=== PATIENT | female | born 1945 | race Caucasian/White ===

== ENCOUNTER 2018-10-04 16:42 | Inpatient (IN) | payer OTHER ==
[~2018-10-04] VITALS: Ht 149.9 cm; Wt 58.5 kg
[~2018-10-04 16:42] MED LIST: BENICAR HCT 201 EACH; CYMBALTA60 MG PO; HYDROCODON-ACE1 EAC7 PO; IBUPROFEN 200200 M1; PREDNISONE 2.52.5 M1; PREMPRO 0.625-1 EACH; PROTONIX40 M2; ZOLOFT 50 MG TA50 M1
[2018-10-04 16:57] VITALS: BP 184/88
[2018-10-04] MEDS ORDERED: BUSPIRONE HCL10 MG PO (17:16)
[2018-10-04] MEDS ORDERED: TRAZODONE HCL50 MG PO (17:16)
[2018-10-04] MEDS ORDERED: VITAMIN D1000 UNI1 PO (17:16)
[2018-10-04] MEDS ORDERED: COZAAR 25 MG TA25 M1 PO (17:17)
[2018-10-04] MEDS ORDERED: SINGULAIR 10 MG10 M1 PO (17:19)
[2018-10-04] MEDS ORDERED: PREDNISONE 5 MG5 M1 PO (17:19)
[2018-10-04] MEDS ORDERED: PROTONIX40 M2 PO (17:19)
[2018-10-04] MEDS ORDERED: REMERON15 MG PO (17:20)
[2018-10-04] MEDS ORDERED: ZOLOFT50 MG PO (17:20)
[2018-10-04 17:21] LABS: URINE BILIRUBIN NEGATIVE (Negative); URINE BLOOD TRACE (Negative); URINE CLARITY CLEAR; URINE COLOR YELLOW; URINE GLUCOSE-RANDOM NEGATIVE (Negative); URINE KETONES TRACE (Negative); URINE LEUKOCYTES-REFLEX TRACE (Negative); URINE NITRITE-REFLEX NEGATIVE (Negative); URINE PROTEIN NEGATIVE (Negative); URINE SPECIFIC GRAVITY 1.015 (1.005-1.030); URINE UROBILINOGEN 0.2 E.U./dl (0.2-1.0)
[2018-10-04 17:41] LABS: ABSOLUTE BASOPHILS 0.1 thou/uL (0.0-0.2); ABSOLUTE EOSINOPHILS 0.4 thou/uL (0.0-0.7); ABSOLUTE LYMPHOCYTES 1.8 thou/uL (0.8-5.3); ABSOLUTE MONOCYTES 0.8 thou/uL (0.0-1.2); ABSOLUTE NEUTROPHILS 4.9 thou/uL (1.6-8.1); BASOPHILS 0.8 %; EOSINOPHILS 5.6 %; HEMATOCRIT 38.2 % (37.0-47.0); HEMOGLOBIN 12.6 gm/dL (12.0-15.0); LYMPHOCYTES 22.3 %; MCH 29.8 pg (26.0-34.0); MCHC 32.8 g/dL (28.0-37.0); MCV 90.7 fL (80.0-100.0); MONOCYTES 9.7 %; MPV 7.3 fl. (7.2-11.1); NUCLEATED RBCS 0 /100WBC; PLATELET COUNT* 392 thou/uL (150-400); POLYS 61.6 %; RBC 4.21 mil/uL (4.20-5.00); RDW-CV 14.1 % (10.5-14.5)
[2018-10-04 17:51] LABS: ANION GAP 10 mmol/L (7-16); BUN 14 mg/dL (7-18); CALCIUM 10.2 mg/dL (8.5-10.1); CHLORIDE 101 mmol/L (98-107); CO2 28 mmol/L (21-32); CREATININE 0.8 mg/dL (0.6-1.3); GLUCOSE 129 mg/dL (70-99); SODIUM 139 mmol/L (136-145)
[2018-10-04 17:58] LABS: CRYSTALS None Seen /LPF (None Seen); HYALINE CASTS >10 Many /LPF (None Seen); MUCUS None Seen strn/LPF (None Seen); SQUAMOUS >10 Many /LPF (0-3); URINE RBC 0-2 Rare /HPF (0-2); URINE WBC-REFLEX 0-5 Rare /HPF (0-5)
[2018-10-04 17:58] LABS: ALBUMIN 3.3 g/dL (3.4-5.0); ALKALINE PHOSPHATASE 123 U/L (46-116); SGOT 14 U/L (15-37); SGPT 11 U/L (30-65); TOTAL BILIRUBIN 0.3 mg/dL (<0.1-1.0); TOTAL PROTEIN 8.4 g/dL (6.4-8.2); TROPONIN-I LEVEL <0.06 ng/mL (<0.06)
[2018-10-04 17:59] LABS: BACTERIA-REFLEX 1-9 Few /HPF (None Seen)
[2018-10-04 18:57] LABS: INFLUENZA A ANTIGEN None Detected (None Detect); INFLUENZA B ANTIGEN None Detected (None Detect)
[2018-10-04 19:56] VITALS: BP 176/84
[2018-10-04 20:00] VITALS: BP 200/96
[2018-10-05] VITALS: BP 151/71
[2018-10-05 04:00] VITALS: BP 152/47
--- NOTE | 2018-10-05 04:14 | NUR ---
PT ARRIVED FROM ER AROUND 2029. ASSESSMENT COMPLETED CHARTED. HAS RESIDUAL FACIAL DROOP FROM 3 EPISODES OF [facility] [place]. DAUGHTER AND SON WITH PT AT ADMISSION THEN LEFT AFTER. C/O NECK PAIN WHICH RESISIDED SHORTLY AFTER. STARTED O2 WITH OXYGEN LEVEL AROUND 87% AND BP WAS HIGHER AT START OF SHIFT BUT WENT DOWN LATER IN THE SHIFT. PT RESTING IN BED AT THIS TIME. WILL CONTINUE TO MONITOR.
[2018-10-05 05:56] LABS: HEMATOCRIT 35.7 % (37.0-47.0); HEMOGLOBIN 11.5 gm/dL (12.0-15.0); MCH 29.5 pg (26.0-34.0); MCHC 32.2 g/dL (28.0-37.0); MCV 91.7 fL (80.0-100.0); MPV 7.8 fl. (7.2-11.1); RBC 3.9 mil/uL (4.20-5.00); WBC 6.5 thou/uL (4.0-11.0)
[2018-10-05 06:19] LABS: CALCIUM 9.1 mg/dL (8.5-10.1); CREATININE 0.6 mg/dL (0.6-1.3); MAGNESIUM 1.9 mg/dL (1.8-2.4)
[2018-10-05 06:28] LABS: POTASSIUM 4.3 mmol/L (3.5-5.1)
[2018-10-05 08:00] VITALS: BP 171/86
--- NOTE | 2018-10-05 12:35 | EKG ---
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 : 1945 Requested By: Anne Covarrubias Order Number: [id number] MD: Hao Solano Measurements Intervals [place] Rate: 82 P: 71 PA: 163 QRS: -26 QRSD: 135 T: 65 QT: 434 QTc: 507 Interpretive Statements Sinus rhythm Left bundle branch block Compared to ECG 12/12/2010 06:22:50 Left bundle-branch block now present Electronically Signed On 10-05-2018 12:35:21 SECURITY MESSENGER by Hao Solano [email or web address] <ELECTRONICALLY SIGNED> By: Hao Solano MD, [facility] 10/05/18 1235 1755 1755 Hao Solano MD, [facility] /EPI
--- NOTE | 2018-10-05 12:54 | NUR ---
ASSESSMENT COMPLETED REFER TO COMPUTER CHARTING. PATIENT M/S STATUS. BED IN LOW AND LOCKED POSITION. CALL LIGHT WITHIN REACH. PATIENT WORKING WITH THEARPY THIS AM. IV FLUIDS INFUSING. PATIENT ON 2 LITERS O2 VIA NASAL CANNULA. PATIENT UP WITH ASSISTANCE IN ROOM. WILL CONTINUE TO MONITOR THIS SHIFT.
--- NOTE | 2018-10-05 13:27 | NUR ---
Pt is A&O. Resides at home alone. Supportive family that assists as needed. Pt is independent, still cooks and cleans, family assists as needed and provide transportation. Pt has a walker and cane for mobility. No hx of HH or SNF. Pt's goal is home at dc, open to HH if needed at dc. With Pt's insurance, Pt will need to use [facility] p:[phone], f:[phone]
[2018-10-05 15:36] VITALS: BP 170/81
[2018-10-05 20:00] VITALS: BP 172/77
[2018-10-06] VITALS: BP 124/58
--- NOTE | 2018-10-06 04:01 | NUR ---
ASSUMED PT CARE AT 1930. ASSESSMENT COMPLETED CHARTED. PT UP WITH STANDBY ASSIST, MED SURG STATUS, ABLE TO MAKE NEEDS KNOWN. NO C/O PAIN OR DISCOMFORT. 2L O2 STILL ON. WILL CONTINUE TO MONITOR.
[2018-10-06 04:30] LABS: HEMATOCRIT 29.4 % (37.0-47.0); MCH 29.7 pg (26.0-34.0); MCHC 32.2 g/dL (28.0-37.0); MCV 92.1 fL (80.0-100.0); MPV 7.9 fl. (7.2-11.1); RBC 3.19 mil/uL (4.20-5.00); RDW-CV 14.3 % (10.5-14.5); WBC 12.6 thou/uL (4.0-11.0)
[2018-10-06 04:42] LABS: HEMOGLOBIN 9.5 gm/dL (12.0-15.0)
[2018-10-06 05:09] LABS: ALBUMIN 2.4 g/dL (3.4-5.0); CALCIUM 8.6 mg/dL (8.5-10.1); CREATININE 0.6 mg/dL (0.6-1.3); MAGNESIUM 1.8 mg/dL (1.8-2.4); TOTAL BILIRUBIN 0.2 mg/dL (<0.1-1.0); TOTAL PROTEIN 5.7 g/dL (6.4-8.2)
[2018-10-06 07:18] VITALS: BP 134/70
--- NOTE | 2018-10-06 14:38 | NUR ---
ASSESSMENT COMPLETED REFER TO COMPUTER CHARTING. PATIENT MED SURG STATUS. BED IN LOW AND LOCKED POSITION. CALL LIGHT WITHIN REACH. FAMILY AT BEDSIDE AT THIS TIME. PATIENT REPORTING NO PAIN, NAUSEA OR SHORTNESS OF BREATH. IV SALINE LOCKED. PATIENT ON 1 LITER O2 VIA NASAL CANNULA. PATIENT UP WITH ASSISTANCE. WILL CONTINUE TO MONITOR THIS SHIFT
--- NOTE | 2018-10-06 16:30 | NUR ---
PT ARRIVED TO UNIT. UP TO CHAIR WITH ASSIST. ORIENTED TO ROOM,CALL LIGHT WITHIN REACH
[2018-10-06 20:00] VITALS: BP 177/69
[2018-10-07 00:15] VITALS: BP 148/64
[2018-10-07 03:59] LABS: ABSOLUTE BASOPHILS 0.1 thou/uL (0.0-0.2); ABSOLUTE LYMPHOCYTES 2.6 thou/uL (0.8-5.3); ABSOLUTE MONOCYTES 0.5 thou/uL (0.0-1.2); ABSOLUTE NEUTROPHILS 7.5 thou/uL (1.6-8.1); BASOPHILS 0.6 %; HEMATOCRIT 30.9 % (37.0-47.0); HEMOGLOBIN 10.1 gm/dL (12.0-15.0); LYMPHOCYTES 24.3 %; MCH 29.9 pg (26.0-34.0); MCHC 32.8 g/dL (28.0-37.0); MCV 91.3 fL (80.0-100.0); MONOCYTES 5.1 %; MPV 7.9 fl. (7.2-11.1); NUCLEATED RBCS 0 /100WBC; PLATELET COUNT* 346 thou/uL (150-400); RBC 3.38 mil/uL (4.20-5.00); RDW-CV 14.6 % (10.5-14.5); WBC 10.8 thou/uL (4.0-11.0)
[2018-10-07 04:23] LABS: CALCIUM 8.9 mg/dL (8.5-10.1); CREATININE 0.7 mg/dL (0.6-1.3); POTASSIUM 3.3 mmol/L (3.5-5.1)
--- NOTE | 2018-10-07 04:50 | NUR ---
ALERT AND ORIENTED X4. UP TO BATHROOM WITH STAND BY ASSIST. BED ALARM ON. CONTINUES ON IV ANTIBIODIC AND BREATHING TREATHMENTS. NO C/O PAIN OR NAUSEA. O2 SAT ON ROOM AIR 91%. CALL LIGHT WITHIN REACH. WILL CONTINUE TO MONITOR.
[2018-10-07 07:40] VITALS: BP 168/85
[2018-10-07 16:30] VITALS: BP 179/70
--- NOTE | 2018-10-07 17:38 | NUR ---
PT HAS BEEN A&Ox4 FOR CURRENT SHIFT. POTASSIUM GIVEN PER PROTOCOL. NEW LABS GETTING DRAWN @1800. IRON INFUSING. HAS HAD FAMILY MEMBERS VISITING THROUGHOUT THE DAY. HAS NOT COMPLAINED OF PAIN. VITALS STABLE. HAS BEEN PLEASANT. CALL LIGHT IN REACH. FALL PRECAUTIONS IN PLACE. WILL CONTINUE TO MONITOR.
--- NOTE | 2018-10-07 17:53 | NUR ---
NURSING DOCUMENTATION BY RENE SLATER REVIEWED
[2018-10-07 21:45] VITALS: BP 156/56
[2018-10-08 03:35] LABS: CALCIUM 8.8 mg/dL (8.5-10.1); CREATININE 0.7 mg/dL (0.6-1.3); MAGNESIUM 2.1 mg/dL (1.8-2.4); POTASSIUM 4.1 mmol/L (3.5-5.1)
--- NOTE | 2018-10-08 04:28 | NUR ---
ALERT AND ORIENTED X4. LUNG SOUNDS DIMINISHED. O2 SAT 82% ON ROOM AIR. PLACED BACK ON O2 AT 2L/NC AND O2 SAT 95%. NO C/O PAIN OR NAUSEA. CALL LIGHT WITHIN REACH. WILL CONTINUE TO MONOTOR.
[2018-10-08 07:50] VITALS: BP 130/77
[2018-10-08] MEDS ORDERED: CEFDINIR300 MG PO (09:21)
[2018-10-08] MEDS ORDERED: MUCINEX600 MG PO (09:21)
[2018-10-08] MEDS ORDERED: MACROBID 100 M100 M2 PO (09:21)
[2018-10-08] MEDS ORDERED: AMLODIPINE BESYL5 M1 PO (09:21)
[2018-10-08 10:27] VITALS: BP 130/77
--- NOTE | 2018-10-08 11:30 | NUR ---
DISCUSSED HOME O2 AND HOME HEALTH WITH PT. SHE DID NOT CARE WHO CM USED LONG THEY CONTRACTED WITH HER INSURANCE. CALLED AND SPOKE WITH MEGAN/ANDRE. FAXED HER FACE SHEET,DISCHARGE SUMMARY WITH ADDENDUM,ORDER AND SATURATIONS TO [phone]. SHE WILL DELIVER PORTABLE O2 TANK TO PT.ROOM. [facility] WILL SET UP HOME HEALTH FOR PT.-NSG,PT AND OT.
--- NOTE | 2018-10-08 14:05 | NUR ---
TIMBER DEADENER SPOKE TO INTAKE WITH [facility] TO INFORM OF THE REFERRAL, AND FAXED THE PATIENT'S FACESHEET, H&P, AND DISCHARGE SUMMARY. [facility] IS IN-NETWORK WITH THE PATIENT'S INSURANCE. [facility] WILL REVIEW THE REFERRAL AND RETURN CALL WITH ACCEPTANCE. WILL REMAIN AVIALABLE TO ASSIST AND FOLLOW NEEDED.
[2018-10-08 14:07] VITALS: BP 130/77
[2018-10-08 15:44] VITALS: BP 132/69
--- NOTE | 2018-10-08 16:11 | NUR ---
PT DISCHARGED TO HOME WITH HOME HEALTH. IV REMOVED. PT DISCHARGED ON HOME O2. VERBILIZED UNDERSTANDING OF DC INSTRUCTIONS. DISCHARGED WITH SON.
--- NOTE | 2018-10-11 10:31 | NUR ---
MESSAGE 10/10, FROM [facility], STATING THEY COULD NOT LOCATE PT. SHE WOULD NOT ANSWER PHONE. SPOKE WITH KATE [phone],THIS AM. VERIFIED PHONE NUMBER. SHE SAID THEY DID GET AHOLD OF DAUGHTER,WILLARD. BUT COULD NOT SEE HER YESTERDAY OR TODAY BUT WILL TRY AGAIN TOMORROW.
== END 2018-10-08 16:00 | disposition home health service (06) | DRG 177 ==
LOC: M.ERS 16:42 → M.2W 18:49 → M.TBA-ER 18:49 → M.2W 20:23 → M.ORTHSURG 10-06 16:26
PROVIDERS: Family Medicine; Physician Assistant; ADMIT Internal Medicine
DX: J15.6 Pneumonia due to other Gram-negative bacteria (principal); G92 Toxic encephalopathy; N39.0 Urinary tract infection, site not specified; E44.1 Mild protein-calorie malnutrition; M19.90 Unspecified osteoarthritis, unspecified site; F17.210 Nicotine dependence, cigarettes, uncomplicated; E87.6 Hypokalemia; G89.29 Other chronic pain; M06.4 Inflammatory polyarthropathy; M48.00 Spinal stenosis, site unspecified; E86.9 Volume depletion, unspecified; Z66 Do not resuscitate; K59.00 Constipation, unspecified; E53.8 Deficiency of other specified B group vitamins; D50.9 Iron deficiency anemia, unspecified; I11.0 Hypertensive heart disease with heart failure; I50.9 Heart failure, unspecified; Z88.0 Allergy status to penicillin; Z88.1 Allergy status to other antibiotic agents; Z91.041 Radiographic dye allergy status; Z88.8 Allergy status to other drugs, medicaments and biological substances; Z68.26 Body mass index [BMI] 26.0-26.9, adult; Z79.899 Other long term (current) drug therapy

== ENCOUNTER 2019-07-18 10:12 | Inpatient (IN) | payer OTHER ==
[~2019-07-18] VITALS: Ht 152.4 cm; Wt 56.7 kg
[~2019-07-18 10:12] MED LIST changes: +AMLODIPINE BESYL5 M1 PO; +BUSPIRONE HCL10 MG PO; +CEFDINIR300 MG PO; +COZAAR 25 MG TA25 M1 PO; +MACROBID 100 M100 M2 PO; +MUCINEX600 MG PO; +PREDNISONE 5 MG5 M1 PO; +PROTONIX40 M2 PO; +REMERON15 MG PO; +SINGULAIR 10 MG10 M1 PO; +TRAZODONE HCL50 MG PO; +VITAMIN D1000 UNI1 PO; +ZOLOFT50 MG PO
[2019-07-18 10:18] VITALS: BP 146/67
[2019-07-18] MEDS ORDERED: ASPIR 8181 M1 PO (10:42)
[2019-07-18] MEDS ORDERED: ASPIR 8181 MG PO (10:43)
[2019-07-18] MEDS ORDERED: ALLER-TEC D 5-1 EACH PO (10:43)
[2019-07-18] MEDS ORDERED: COZAAR 25 MG TA25 M2 PO (10:44)
[2019-07-18] MEDS ORDERED: VITAMIN D3400 UNIT PO (10:44)
[2019-07-18] MEDS ORDERED: REMERON15 MG PO ×2 (10:46)
[2019-07-18] MEDS ORDERED: BUSPIRONE HCL10 MG PO (10:46)
[2019-07-18 10:47] LABS: URINE BILIRUBIN NEGATIVE (Negative); URINE BLOOD TRACE (Negative); URINE CLARITY CLEAR; URINE COLOR YELLOW; URINE GLUCOSE-RANDOM NEGATIVE (Negative); URINE KETONES NEGATIVE (Negative); URINE PROTEIN TRACE (Negative); URINE SPECIFIC GRAVITY 1.025 (1.005-1.030); URINE UROBILINOGEN 0.2 E.U./dl (0.2-1.0)
[2019-07-18] MEDS ORDERED: PREDNISONE 5 MG5 M1 PO (10:47)
[2019-07-18] MEDS ORDERED: PROTONIX40 M1 PO (10:47)
[2019-07-18] MEDS ORDERED: SINGULAIR 10 MG10 M1 PO (10:47)
[2019-07-18 10:48] LABS: URINE LEUKOCYTES-REFLEX 2+ (Negative); URINE NITRITE-REFLEX POSITIVE (Negative)
[2019-07-18] MEDS ORDERED: NORCO 5-325 TA1 EAC1 PO (10:48)
[2019-07-18] MEDS ORDERED: TRAZODONE HCL100 MG PO (10:48)
[2019-07-18] MEDS ORDERED: XANAX 0.5 MG0.5 MG PO (10:48)
[2019-07-18 10:53] LABS: BACTERIA-REFLEX >30 Many /HPF (None Seen); CASTS None Seen /LPF (None Seen); CRYSTALS None Seen /LPF (None Seen); MUCUS 0-3 Light strn/LPF (None Seen); SQUAMOUS 0-3 Few /LPF (0-3); URINE RBC 0-2 Rare /HPF (0-2)
[2019-07-18 11:08] LABS: ABSOLUTE BASOPHILS 0.2 thou/uL (0.0-0.2); ABSOLUTE EOSINOPHILS 0.5 thou/uL (0.0-0.7); ABSOLUTE LYMPHOCYTES 1.7 thou/uL (0.8-5.3); ABSOLUTE MONOCYTES 0.7 thou/uL (0.0-1.2); BASOPHILS 1.8 %; EOSINOPHILS 5.3 %; HEMATOCRIT 36.4 % (37.0-47.0); HEMOGLOBIN 12.1 gm/dL (12.0-15.0); LYMPHOCYTES 18.7 %; MCH 31.8 pg (26.0-34.0); MCHC 33.3 g/dL (28.0-37.0); MCV 95.3 fL (80.0-100.0); MONOCYTES 7.9 %; MPV 8.1 fl. (7.2-11.1); NUCLEATED RBCS 0 /100WBC; PLATELET COUNT* 234 thou/uL (150-400); POLYS 66.3 %; RBC 3.82 mil/uL (4.20-5.00)
[2019-07-18 11:18] LABS: ANION GAP 11 mmol/L (7-16); BUN 20 mg/dL (7-18); CALCIUM 8.6 mg/dL (8.5-10.1); CHLORIDE 106 mmol/L (98-107); CO2 26 mmol/L (21-32); CREATININE 1.1 mg/dL (0.6-1.3); GLUCOSE 89 mg/dL (70-99); POTASSIUM 3.1 mmol/L (3.5-5.1); SODIUM 143 mmol/L (136-145)
[2019-07-18 11:28] LABS: ALBUMIN 3.1 g/dL (3.4-5.0); ALKALINE PHOSPHATASE 82 U/L (46-116); LIPASE 58 U/L (73-393); NT-PRO BRAIN NAT PEPTIDE 125 pg/mL (<300); SGOT 20 U/L (15-37); SGPT 17 U/L (30-65); TOTAL BILIRUBIN 0.5 mg/dL (<0.1-1.0); TOTAL PROTEIN 7.3 g/dL (6.4-8.2); TROPONIN-I LEVEL <0.06 ng/mL (<0.06)
[2019-07-18 14:00] VITALS: BP 153/65; BP 165/71
[2019-07-18] MEDS ORDERED: COZAAR 25 MG TA25 M1 PO (14:29)
[2019-07-18] MEDS ORDERED: ZOLOFT50 MG PO (14:29)
[2019-07-18] MEDS ORDERED: VITAMIN D2000 UNIT PO (14:29)
[2019-07-18] MEDS ORDERED: ALLEGRA ALLERG180 MG PO (14:30)
--- NOTE | 2019-07-18 15:01 | EKG ---
[place] [address] ELECTROCARDIOGRAM REPORT Name: JOSH NORWOOD Room: [address] ADM IN ..#: [id number] Admission: 07/18/19 Attend Phys: Seamus Wilkerson Discharge: Date of : 49 Report #: [id number] THIS REPORT FOR: //name// [facility] ED Test Date: 2019-07-18 Test Time: 10:59:05 Pat Name: JOSH NORWOOD Department: Room: [facility] Gender: F Clipper Counters: ATA : 1945 Requested By: Gonsalo Mercedes Order Number: [id number] MD: Hao Solano Measurements Intervals [place] Rate: 80 P: 80 MS: 158 QRS: -27 QRSD: 132 T: 87 QT: 427 QTc: 493 Interpretive Statements Sinus rhythm Probable left atrial enlargement Left bundle branch block Compared to ECG 10/04/2018 17:55:29 No significant changes Electronically Signed On 07-18-2019 15:00:46 CDT by Hao Solano [email or web address] <ELECTRONICALLY SIGNED> By: Hao Solano MD, [facility] 07/18/19 1500 1059 1059 Hao Solano MD, [facility] /EPI
[2019-07-18 16:30] VITALS: BP 160/62
--- NOTE | 2019-07-18 17:30 | NUR ---
PATIENT ADMITTED TO ROOM 107 FROM ER. ALERT AND ORIENTED X 4. NO COMPLAINTS OF PAIN. NO SKIN BREAKDOWN NOTED. IVF INFUSING, SCHED IV ABX GIVEN IN ER. PATIENT UP WITH SBA, STEADY GAIT NOTED. REG DIET, TOLERATING. DR. ISRAEL NOTIFIED THAT HOME MEDS IN COMPUTER CURRENT AND K+ IS 3.1, NO RESPONSE AT THIS TIME. ORIENTED TO CALL LIGHT. CALL LIGHT WITHIN REACH, WILL CONTINUE TO MONITOR.
[2019-07-18 19:45] VITALS: BP 153/61
--- NOTE | 2019-07-19 05:22 | NUR ---
PT SLEPT MOST OF SHIFT. ASSESSMENT DOCUMENTED. MEDS GIVEN PER E-MAR. IV PATENT, FLUIDS INFUSING. NO REPORTS OF PAIN OR NAUSEA THIS SHIFT. POTASSIUM REPLACED PER PROTOCOL, REDRAW ORDERED. 2L NC PLACED ON PATIENT AT BEGINING OF SHIFT DUE TO PTS SAT BEING 87% ON ROOM AIR. WILL CONTINUE WITH PLAN OF CARE.
[2019-07-19 07:50] VITALS: BP 119/54
--- NOTE | 2019-07-19 16:02 | NUR ---
PT.ALERT AND ORIENTED. LIVES ALONE. SISTERS ARE SUPPORTIVE. SHE HAS A CANE, SHE USES SOMETIMES. ALSO HAS A WALKER. HAD O2 PREVIOUSLY AND HAS IT ON NOW BUT STATED SHE DOES NOT HAVE IT AT HOME. SHE IS INDEPENDENT WITH EVERYTHING. STATED SHE HAD HOME HEALTH NEED LAST TIME BUT DOESN'T FEEL SHE WILL THIS TIME.CLIFF WAS TO SEE HER DUE TO HER INSURANCE. THEY CALLED SEVERAL TIMES BUT STATED THEY COULD NOT FIND HER HOUSE,AND NEVER SAW HER.
--- NOTE | 2019-07-19 16:13 | NUR ---
PATIENT UP WITH SBA. PT ORDERED FOR EVAL PATIENT LIVES AT HOME BY HERSELF AND HAS A HX OF FALLS. IV SL THIS SHIFT, SCHED ABX INFUSED ORDERED. NO COMPLAINTS OF PAIN. GOOD APPETITE.
[2019-07-19 16:32] VITALS: BP 143/72
--- NOTE | 2019-07-19 18:53 | 2DMMODE ---
[place] [address] 2 D/M-MODE ECHOCARDIOGRAM Name: JOSH NORWOOD Room: [address] IN [facility]#: [id number] Admission: 07/18/19 Attend Phys: Bhupendra Zepeda Discharge: Date of : 49 Date of Service: 07/19/19 1853 Report #: [id number] THIS REPORT FOR: //name// APPROVED REPORT Study performed: 07/19/2019 11:23:08 EXAM: Comprehensive 2D, Doppler, and color-flow Echocardiogram Patient Location: In-Patient Room #: [facility] Status: routine BSA: 1.53 HR: 78 bpm BP: 119/54 mmHg Rhythm: NSR Other Information Study Quality: Good Indications Murmur Dyspnea 2D Dimensions IVSd: 10.96 (7-11mm) LVOT Diam: 19.36 (18-24mm) LVDd: 45.60 mm PWd: 9.79 (7-11mm) Ascending Ao: 29.01 (22-36mm) LVDs: 28.41 (25-40mm) Aortic Root: 28.39 mm Volumes Left Atrial Volume (Systole) LA ESV Index: 27.90 mL/m2 Aortic Valve AoV Peak Reynaldo.: 1.31 m/s AO Peak Gr.: 6.84 mmHg LVOT Max P.88 mmHg AO Mean Gr.: 3.72 mmHg LVOT Mean P.93 mmHg LVOT Max V: 0.99 m/s AO V2 VTI: 26.30 cm LVOT Mean V: 0.63 m/s SUAD (VTI): 2.49 cm2 LVOT V1 VTI: 22.24 cm Mitral Valve E/A Ratio: 1.05 MV Decel. Time: 164.41 [place] [address] 2 D/M-MODE ECHOCARDIOGRAM Name: JOSH NORWOOD Room: [address] IN [facility]#: [id number] Admission: 07/18/19 Attend Phys: Bhupendra Zepeda Discharge: Date of : 49 Date of Service: 07/19/19 1853 Report #: [id number] MV E Max Reynaldo.: 1.03 m/s MV PHT: 47.68 ms MVA (PHT): 4.61 cm2 TDI E/Lateral E': 11.44 E/Medial E': 10.30 Medial E' Reynaldo.: 0.10 m/s Lateral E' Reynaldo.: 0.09 m/s Pulmonary Valve PV Peak Reynaldo.: 0.95 m/s PV Peak Gr.: 3.64 mmHg Tricuspid Valve RAP Estimate: 5.00 mmHg TR Peak Gr.: 27.88 mmHg RVSP: 32.00 mmHg PA Pressure: 32.00 mmHg Left Ventricle The left ventricle is normal size. There is normal LV segmental wall motion. There is normal left ventricular wall thickness. Left ventricular systolic function is normal. The left ventricular ejection fraction is within the normal range. LVEF is 55-60%. Grade I - abnormal relaxation pattern. Right Ventricle The right ventricle is normal size. The right ventricular systolic function is normal. Atria The left atrium size is normal. The right atrium size is normal. Aortic Valve The aortic valve is normal in structure. Trace aortic regurgitation. There is no aortic valvular stenosis. Mitral Valve The mitral valve is normal in structure. Trace mitral regurgitation. No evidence of mitral valve stenosis. Tricuspid Valve The tricuspid valve is normal in structure. Trace tricuspid regurgitation. Mild pulmonary hypertension. Pulmonic Valve The pulmonary valve is normal in structure[place] [address] 2 D/M-MODE ECHOCARDIOGRAM Name: JOSH NORWOOD Room: [address]#: [id number] Admission: 07/18/19 Attend Phys: Bhupendra Zepeda Discharge: Date of : 49 Date of Service: 07/19/19 1853 Report #: [id number] regurgitation. Great Vessels The aortic root is normal in size. IVC is normal in size and collapses >50% with inspiration. Pericardium There is no pericardial effusion. <Conclusion> Left ventricular systolic function is normal. The left ventricular ejection fraction is within the normal range. LVEF is 55-60%. Grade I - abnormal relaxation pattern. Trace aortic regurgitation. Trace mitral regurgitation. Trace tricuspid regurgitation. Mild pulmonary hypertension. Trace pulmonic regurgitation. <ELECTRONICALLY SIGNED> By: Truong Stephens MD, FACC 07/19/191852 52 52 Truong Stephens MD, FACC /INF
[2019-07-19 20:13] VITALS: BP 154/70
--- NOTE | 2019-07-19 20:14 | EKG ---
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
[2019-07-20 04:33] LABS: ALBUMIN 2.6 g/dL (3.4-5.0); CALCIUM 8.7 mg/dL (8.5-10.1); CREATININE 0.9 mg/dL (0.6-1.3); POTASSIUM 4.4 mmol/L (3.5-5.1); TOTAL BILIRUBIN 0.3 mg/dL (<0.1-1.0); TOTAL PROTEIN 6.1 g/dL (6.4-8.2)
--- NOTE | 2019-07-20 06:18 | NUR ---
UPON SHIFT BEGINNING ASSESSMENT SHE DENIED ANY PAIN. STAYED ON 2L OF OXYGEN THROUGH SHIFT. SLEPT ALL NIGHT. SHE WAS ABLE TO GET UP TO THE RESTROOM AD ONIEL. WILL CONTINUE TO MONITOR
[2019-07-20 07:30] VITALS: BP 135/54
--- NOTE | 2019-07-20 17:04 | NUR ---
PT REMAINED ALERT AND ORIENTED. PT RESTING IN ROOM. PT DENIES ANY PAIN OR N/V THIS SHIFT. PT WORKED WITH THERAPY. PT ON 2 LITERS O2 BY NASAL CANNULA. FALL RISK PRECAUTIONS IN PLACE. HOURLY ROUNDING COMPLETED. WILL CONTINUE TO MONITOR.
[2019-07-20 20:00] VITALS: BP 142/68
[2019-07-21 04:41] LABS: ABSOLUTE BASOPHILS 0.1 thou/uL (0.0-0.2); ABSOLUTE EOSINOPHILS 0.4 thou/uL (0.0-0.7); ABSOLUTE MONOCYTES 0.6 thou/uL (0.0-1.2); ABSOLUTE NEUTROPHILS 4.3 thou/uL (1.6-8.1); EOSINOPHILS 5.5 %; HEMATOCRIT 30.2 % (37.0-47.0); LYMPHOCYTES 26.9 %; MCH 31.6 pg (26.0-34.0); MCHC 32.8 g/dL (28.0-37.0); MCV 96.4 fL (80.0-100.0); MONOCYTES 8.7 %; NUCLEATED RBCS 0 /100WBC; PLATELET COUNT* 211 thou/uL (150-400); POLYS 57.9 %; RBC 3.14 mil/uL (4.20-5.00); RDW-CV 13.5 % (10.5-14.5); WBC 7.4 thou/uL (4.0-11.0)
[2019-07-21 04:53] LABS: HEMOGLOBIN 9.9 gm/dL (12.0-15.0)
[2019-07-21 04:54] LABS: CALCIUM 9.1 mg/dL (8.5-10.1); CREATININE 0.9 mg/dL (0.6-1.3); POTASSIUM 4.4 mmol/L (3.5-5.1)
--- NOTE | 2019-07-21 05:04 | NUR ---
PATIENT SLEPT WELL DURING THIS SHIFT. PT DENIES PAIN/NAUSEA. PT UP WITH STANDBY TO BATHROOM. PT WITH FLUIDS INFUSING PER DR ORDER. PT ON O2 @ 2 LITERS PER NASAL CANNULA. PT DENIES NEEDS AT THIS TIME. WILL CONTINUE TO MONITOR.
[2019-07-21 07:10] VITALS: BP 119/58
[2019-07-21 08:25] VITALS: BP 119/58
[2019-07-21] MEDS ORDERED: MACROBID 100 M100 M2 PO (08:25)
[2019-07-21 10:06] VITALS: BP 119/58
--- NOTE | 2019-07-21 10:07 | NUR ---
PT REMAINED ALERT AND ORIENTED. PT GIVEN PRESCRIPTIONS, CARE NOTES, AND DISCHARGE INSTRUCTIONS. IV REMOVED. PT LEFT AMBULATORY WITH NURSING STAFF TO HOME. FALL RISK PRECAUTIONS IN PLACE. HOURLY ROUNDING COMPLETED.
== END 2019-07-21 10:08 | disposition home or self-care (01) | DRG 689 ==
LOC: M.ERS 10:12 → M.TBA-ER 11:39 → M.ORTHSURG 11:39
PROVIDERS: Emergency Medicine; Internal Medicine; ADMIT Internal Medicine
DX: N39.0 Urinary tract infection, site not specified (principal); G93.41 Metabolic encephalopathy; J96.01 Acute respiratory failure with hypoxia; J44.1 Chronic obstructive pulmonary disease with (acute) exacerbation; R65.10 Systemic inflammatory response syndrome (SIRS) of non-infectious origin without acute organ dysfunction; B96.89 Other specified bacterial agents as the cause of diseases classified elsewhere; M19.90 Unspecified osteoarthritis, unspecified site; E88.09 Other disorders of plasma-protein metabolism, not elsewhere classified; E87.6 Hypokalemia; F17.210 Nicotine dependence, cigarettes, uncomplicated; Z88.1 Allergy status to other antibiotic agents; Z88.0 Allergy status to penicillin; Z88.8 Allergy status to other drugs, medicaments and biological substances; Z91.041 Radiographic dye allergy status; Z79.82 Long term (current) use of aspirin; Z79.1 Long term (current) use of non-steroidal anti-inflammatories (NSAID); Z79.899 Other long term (current) drug therapy; Z98.891 History of uterine scar from previous surgery

== ENCOUNTER 2021-02-22 13:21 | Inpatient (IN) | payer OTHER ==
[~2021-02-22] VITALS: Ht 152.4 cm; Wt 61.0 kg
--- NOTE | ~2021-02-22 | CON ---
[address] [address] CONSULTATION Name: JOSH NORWOOD Room: [address] IN .R.#: [id number] Admission: 02/22/21 Attend Phys: Seamus Wilkerson Discharge: Date of : 49 Report #: [id number] THIS REPORT FOR: cc: Ernie Olvera MD, Anthony MD ~ Jose Spain MD DATE OF SERVICE: 02/22/2021 HISTORY OF PRESENT ILLNESS: This is a 75-year-old female patient who is a very poor historian. Most of the history is from the records. She was admitted after a fall and a hip fracture. Neurology consultation was noticed because, on examination, she was noticed to have some right facial drooping. She has a history of Kapoor's palsy. She says she does not know when the Kapoor's palsy happened. She does not know if she fully recovered from it. She does not know which side it affected. REVIEW OF SYSTEMS: A 14-point review of systems is positive for depression, esophageal reflux disease, polyarthritis and tobacco dependence as per history. She denies any eye, ENT, cardiac, respiratory, GI, , constitutional, dermatological, hematological, psychiatric, throat symptom associated with present symptomatology except as described above. She has a history of hip fracture. She has a history of pain behind the right eye for 1 week. She has a history of trigeminal neuralgia. She has a history of spinal stenosis, but those things have been diagnosed in the past. PAST MEDICAL HISTORY: Positive for trigeminal neuralgia. She also has anxiety and depression. FAMILY HISTORY: Negative for early age stroke. SOCIAL HISTORY: She does not drink alcohol. PHYSICAL EXAMINATION: Indicates she is alert. She is responsive. She is hard of hearing. She does not have her hearing aid with her. That makes it very difficult. She does have an intact speech, memory and fund of knowledge. She believes this is her baseline. She is very difficult to carry out because of the patient's hearing problem. Cranial nerve examination 2-12 on my examination looks mostly unremarkable. Her neuromuscular examination is difficult to tell because of the left hip fracture, but she moves both upper extremities symmetrically. She says she has a feeling there. She wiggles her toes on both sides. Tone is difficult to tell there because of hip fracture, I did not do a detailed examinations. Same is true with reflexes. There is no meningeal sign. I could not look at the patient's fundus. She is moderately built individual. She has no edema, cyanosis or jaundice. There is no thyroid [place] [address] CONSULTATION Name: JOSH NORWOOD Room: [address] IN .R.#: [id number] Admission: 02/22/21 Attend Phys: Seamus Wilkerson Discharge: Date of : 49 Report #: [id number] carotid bruit. Blood pressure is 206/71, respirations are 25, pulse is 76 and temperature is 97.2. LABORATORY DATA: White count is 8.2 and blood glucose is 108. She did have a CT scan of the head in the Emergency Room that does not appear to be showing any definite abnormality. IMPRESSION AND PLAN: I do not appreciate any significant abnormality in this patient's facial examination today. If she had the symptoms resolve, I think we need to address the question of CVA, especially this patient is very predisposed for CVA. This is because her LDL is very high. She smokes and that makes very predisposed to CVA. I ordered a carotid Doppler to look at her carotid. If that is okay, rest of the workup may have to be done as an outpatient. 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 Thank you very much for this referral and if you have any question, please feel free to contact me. By: [id number] Spain MD /nt
--- NOTE | ~2021-02-22 | EEG ---
[address] [address] EEG STUDY REPORT Name: JOSH NORWOOD Room: [address] IN M.R.#: [id number] Admission: 02/22/21 Attend Phys: Seamus Wilkerson Discharge: Date of : 49 Report #: [id number] THIS REPORT FOR: cc: Ernie Olvera MD, Anthony MD Khosla,Jose Candelaria MD ~ This patient is having recurrent episode of falling down. EEG was done to evaluate the possibility of seizure. EEG was done by using sequential and referential electrode. Background activity in this patient's EEG is about 8-9 Hz and 30 microvolt. The patient went to sleep that is associated with bilateral slowing and vertex sharp waves. Photic stimulation is unremarkable. Throughout the record, no active epileptiform activity was noticed. IMPRESSION: This patient's EEG is intermixed with some theta range slowing on both sides. That is a nonspecific abnormality, which can occur with dementia, encephalopathy, effect of psychotropic medication, etc. Clinical correlation is recommended. By: 1359 [id number] Spain MD /nt
--- NOTE | ~2021-02-22 | OP ---
[address] [address] OPERATIVE REPORT Name: JOSH NORWOOD Room: [address] IN .R.#: [id number] Admission: 02/22/21 Attend Phys: Seamus Wilkerson Discharge: Date of : 49 Report #: [id number] THIS REPORT FOR: cc: Ernie Olvera MD, Anthony MD Kesl, James B. DO ~ PREOPERATIVE DIAGNOSIS: Left valgus impacted subcapital femoral neck fracture. POSTOPERATIVE DIAGNOSIS: Left valgus impacted subcapital femoral neck fracture. PROCEDURE: Percutaneous pinning of valgus impacted left subcapital femoral neck fracture. SURGEON: Rodo Tello DO. AUDIT OFFICER: Mukul Gorman DO. ANESTHESIA: Spinal. ANTIBIOTICS: Clindamycin. INTRAVENOUS FLUIDS: 700 mL lactated Ringer's. ESTIMATED BLOOD LOSS: 30 mL. COMPLICATIONS: None. SPECIMENS: None. DRAINS: None. CONDITION OF PATIENT: Stable to PACU. IMPLANTS: [place] 6.5 partially threaded cannulated screws, 32 mm threads for the most inferior screw 16 mm threads from the superior 2. INDICATIONS FOR PROCEDURE: Valgus impacted stable femoral neck fracture. Went over with the patient and her sister on the phone the imaging, exam findings, diagnosis and different treatment options, ultimately the patient wanted to avoid arthroplasty if at all possible. This was a valgus impacted femoral neck fracture with some inherent stability. Therefore, a percutaneous pinning does have indications. She wished that procedure and acknowledged and accepted risks and complications and gave consent to proceed. DESCRIPTION OF PROCEDURE: I marked the left lower extremity in the presence of operative team members. Everyone agreed correct. [place] [address] OPERATIVE REPORT Name: JOSH NORWOOD Room: [address] IN [facility].#: [id number] Admission: 02/22/21 Attend Phys: Seamus Wilkerson Discharge: Date of : 49 Report #: [id number] operative suite. Anesthesia performed spinal. She was then placed on the operative [place] table in supine position, well-padded and secured. C-arm confirmed that we still had a stable valgus impacted subcapital femoral neck fracture. The left lower extremity was then sterilely prepped and draped in standard fashion. Timeout was performed indicating correct patient, procedure, site, antibiotics and that implants were present and sterile. All team members agreed. C-arm helped marked out in a percutaneous incision. This guidewire was inserted through the skin for the inferior screw. This was inserted in the appropriate position on table. Multiplanar C-arm imaging. The same was performed for superior, anterior and posterior guidewires for screw placement. All guidewires were well contained within the femoral neck and head in good position. We then made incisions over the guidewires, measured, drilled the near cortex. For the inferior screw, we placed a 32 mm partially threaded screw, so as to not disimpact the valgus nature of the fracture; this had appropriate purchase. The superior 2 screws were 16 mm threads and had appropriate purchase. The guidewires were removed. Took the hip through range of motion with the help of the table with live fluoroscopy confirming in multiple images and planes that the screws were well contained within the neck and head of appropriate length. Saved final C-arm images. Hemostasis maintained, irrigated thoroughly with normal saline, closed with 2-0 Monocryl buried deep, Dermabond glue over the skin and silver impregnated dressing. Debriefing performed confirming procedure, blood loss and all counts were correct and final. All team members agreed. She was transferred off the operating table, taken to PACU stable. POSTOPERATIVE COURSE AND EVALUATION: I did attempt to call her sister at the number I had talked to her previously, I did not get an answer. I left voicemail. The patient was resting in PACU with stable vital signs, pain controlled, neurovascularly intact. Compartments soft and compressible. No signs of deep venous thrombosis. PACU films showed stable fixation and reduction. She will be weightbear as tolerated. Deep venous thrombosis prophylaxis will be pharmacological and mechanical. Plan was laid out within the postoperative note. We will continue and followup notes. Encouraged medical staff, patient or nursing to call anytime with questions or concerns. COVID protocol followed at all times. Weightbear as tolerated. PT, OT. By: [id number] Tello, DO /nt
[~2021-02-22 13:21] MED LIST changes: +ALLEGRA ALLERG180 MG PO; +ALLER-TEC D 5-1 EACH PO; +ASPIR 8181 M1 PO; +ASPIR 8181 MG PO; +COZAAR 25 MG TA25 M2 PO; +NORCO 5-325 TA1 EAC1 PO; +PROTONIX40 M1 PO; +TRAZODONE HCL100 MG PO; +VITAMIN D2000 UNIT PO; +VITAMIN D3400 UNIT PO; +XANAX 0.5 MG0.5 MG PO
[2021-02-22 13:24] VITALS: BP 182/62
[2021-02-22 14:22] LABS: ABSOLUTE BASOPHILS 0.1 thou/uL (0.0-0.2); ABSOLUTE EOSINOPHILS 0.1 thou/uL (0.0-0.7); ABSOLUTE MONOCYTES 0.4 thou/uL (0.0-1.2); ABSOLUTE NEUTROPHILS 6.6 thou/uL (1.6-8.1); BASOPHILS 0.7 %; EOSINOPHILS 1.7 %; HEMATOCRIT 38.8 % (37.0-47.0); HEMOGLOBIN 12.8 gm/dL (12.0-15.0); MCH 30.7 pg (26.0-34.0); MCHC 33.1 g/dL (28.0-37.0); MCV 92.6 fL (80.0-100.0); MPV 6.9 fl. (7.2-11.1); NUCLEATED RBCS 0 /100WBC; PLATELET COUNT* 200 thou/uL (150-400); POLYS 80.6 %; RBC 4.19 mil/uL (4.20-5.00); RDW-CV 15.2 % (10.5-14.5); WBC 8.2 thou/uL (4.0-11.0)
[2021-02-22 14:31] LABS: ANION GAP 13 mmol/L (7-16); BUN 15 mg/dL (7-18); CHLORIDE 103 mmol/L (98-107); CO2 26 mmol/L (21-32); CREATININE 1.1 mg/dL (0.6-1.3); GLUCOSE 108 mg/dL (70-99); POTASSIUM 3.5 mmol/L (3.5-5.1); SODIUM 142 mmol/L (136-145)
[2021-02-22 14:34] LABS: APTT 23.9 Seconds (25.0-31.3); PROTIME 10.3 Seconds (9.20-11.50)
[2021-02-22 14:35] LABS: ALBUMIN 3.6 g/dL (3.4-5.0); ALKALINE PHOSPHATASE 106 U/L (46-116); CHOLESTEROL 256 mg/dL (<200); HDL CHOLESTEROL 62 mg/dL (>40); LDL CHOLESTEROL 167 mg/dL (<100); SERUM ASSESSMENT Clear; SGOT 17 U/L (15-37); SGPT 14 U/L (30-65); TC:HDL 4.1 Ratio (Not establshd); TOTAL BILIRUBIN 0.3 mg/dL (<0.1-1.0); TOTAL PROTEIN 7.6 g/dL (6.4-8.2); TRIGLYCERIDE 136 mg/dL (<150); VLDL 27 mg/dL (<40)
[2021-02-22 15:25] LABS: ESR (SEDRATE) 22 mm/hr (0-30)
[2021-02-22 15:50] LABS: URINE BILIRUBIN NEGATIVE (Negative); URINE BLOOD NEGATIVE (Negative); URINE CLARITY CLEAR; URINE COLOR YELLOW; URINE GLUCOSE-RANDOM NEGATIVE (Negative); URINE KETONES NEGATIVE (Negative); URINE LEUKOCYTES-REFLEX NEGATIVE (Negative); URINE NITRITE-REFLEX NEGATIVE (Negative); URINE PROTEIN NEGATIVE (Negative); URINE UROBILINOGEN 0.2 E.U./dl (0.2-1.0)
--- NOTE | 2021-02-22 16:47 | EKG ---
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
[2021-02-22 16:56] VITALS: BP 206/71
[2021-02-22 17:30] VITALS: BP 147/61
[2021-02-22 18:25] LABS: CALCIUM 8.4 mg/dL (8.5-10.1); CREATININE 1.1 mg/dL (0.6-1.3); PHOSPHORUS* 2.3 mg/dL (2.5-4.9)
[2021-02-22 20:00] VITALS: BP 153/66
[2021-02-23 00:21] VITALS: BP 144/54
[2021-02-23 02:06] LABS: GLYCOHEMOGLOBIN (HGB A1C) 5.5 % (4.8-5.6)
[2021-02-23 04:07] VITALS: BP 140/42
[2021-02-23 04:36] LABS: CALCIUM 8.9 mg/dL (8.5-10.1); CREATININE 0.9 mg/dL (0.6-1.3); POTASSIUM 3.8 mmol/L (3.5-5.1)
[2021-02-23 04:39] LABS: APTT 24.2 Seconds (25.0-31.3); PROTIME 10.8 Seconds (9.20-11.50)
[2021-02-23 04:55] LABS: HEMATOCRIT 34.3 % (37.0-47.0); HEMOGLOBIN 11.3 gm/dL (12.0-15.0); MCH 30.5 pg (26.0-34.0); MCHC 32.9 g/dL (28.0-37.0); MCV 92.8 fL (80.0-100.0); MPV 7.7 fl. (7.2-11.1); RBC 3.69 mil/uL (4.20-5.00); WBC 9.8 thou/uL (4.0-11.0)
[2021-02-23 05:48] VITALS: BP 140/42
[2021-02-23 16:00] VITALS: BP 120/51
[2021-02-23 19:30] VITALS: BP 112/47
[2021-02-24 00:43] VITALS: BP 120/52
[2021-02-24 07:30] VITALS: BP 143/44
[2021-02-24 15:54] VITALS: BP 136/46
[2021-02-24 20:24] VITALS: BP 221/88
[2021-02-24 21:41] VITALS: BP 157/62
[2021-02-25 00:06] VITALS: BP 148/62
[2021-02-25 04:11] VITALS: BP 146/61
[2021-02-25 08:15] VITALS: BP 135/51
[2021-02-25 15:57] VITALS: BP 149/56
[2021-02-25 20:10] VITALS: BP 154/58
[2021-02-26] MEDS ORDERED: CALCIUM 600 +1 EAC1 PO (07:39)
[2021-02-26] MEDS ORDERED: VITAMIN D21250 MC1 PO (07:39)
[2021-02-26] MEDS ORDERED: XARELTO10 MG PO (07:39)
[2021-02-26] MEDS ORDERED: COLACE 100 MG100 MG PO (07:39)
[2021-02-26 08:00] VITALS: BP 112/41
[2021-02-26 16:00] VITALS: BP 126/82
[2021-02-26 19:38] VITALS: BP 122/48
[2021-02-27 08:00] VITALS: BP 128/51
[2021-02-27 16:00] VITALS: BP 187/69
[2021-02-27 20:00] VITALS: BP 171/65
[2021-02-28 08:05] VITALS: BP 134/68
[2021-02-28 16:14] VITALS: BP 177/65
[2021-02-28 20:00] VITALS: BP 145/59
[2021-03-01 08:04] VITALS: BP 148/63
== END 2021-03-01 14:40 | DRG 481 ==
LOC: M.ERS 13:21 → M.TBA-ER 15:16 → M.2W 15:16 → M.ORTHSURG 15:16 → M.2W 17:15 → M.ORTHSURG 02-24 19:50
PROVIDERS: Family Medicine; Nurse Practitioner Family; Orthopaedic Surgery; ADMIT Internal Medicine; ATTEND Internal Medicine
PROC: 0QH734Z Insertion of Internal Fixation Device into Left Upper Femur, Percutaneous Approach (ICD-10-PCS; principal; 2021-02-23)
DX: M80.052A Age-related osteoporosis with current pathological fracture, left femur, initial encounter for fracture (principal); J98.11 Atelectasis; I16.0 Hypertensive urgency; I65.21 Occlusion and stenosis of right carotid artery; R29.810 Facial weakness; M19.90 Unspecified osteoarthritis, unspecified site; R51.9 Headache, unspecified; F32.9 Major depressive disorder, single episode, unspecified; E78.5 Hyperlipidemia, unspecified; F41.9 Anxiety disorder, unspecified; K21.9 Gastro-esophageal reflux disease without esophagitis; M06.4 Inflammatory polyarthropathy; I10 Essential (primary) hypertension; R09.02 Hypoxemia; E78.00 Pure hypercholesterolemia, unspecified; Z20.822 Contact with and (suspected) exposure to COVID-19; Z79.82 Long term (current) use of aspirin; Z79.899 Other long term (current) drug therapy; Z90.49 Acquired absence of other specified parts of digestive tract; Z98.891 History of uterine scar from previous surgery; Z88.1 Allergy status to other antibiotic agents; Z88.0 Allergy status to penicillin; Z85.3 Personal history of malignant neoplasm of breast; Z88.8 Allergy status to other drugs, medicaments and biological substances; Z91.09 Other allergy status, other than to drugs and biological substances